=== PATIENT | male | born 1990 | race Caucasian/White ===

== ENCOUNTER 2017-05-06 15:36 | Inpatient (IN) ==
[2017-05-06] MEDS ORDERED: Ipratropium/Albuterol Neb 3 ML ONE (15:39)
[2017-05-06] MEDS ORDERED: Dexamethasone 4 MG/ML VIAL IVP ONE (15:44)
[2017-05-06] MEDS ORDERED: Ipratropium/Albuterol Neb 3 ML IH ONE (15:44)
--- NOTE | 2017-05-06 15:49 | Emergency Department Note ---
Disposition Clinical Impression: Respiratory distress, acute, Hypoxemia Asthma with exacerbation Qualifiers: Asthma severity: unspecified severity Qualified Code(s): J45.901 - Unspecified asthma with (acute) exacerbation Disposition: Admitted As Inpatient Condition: Fair SOB HPI - General Chief Complaint: ED Shortness of Breath/Dyspnea Stated Complaint: MARIANNA Time Seen by Provider: 05/06/17 15:43 Source: patient Nursing Notes Reviewed: Yes Vital Signs Reviewed: Yes - History of Present Illness I did see the patient immediately upon arrival and the patient presents with shortness of breath started gradually yesterday and is constant and severe and worse with exertion. He has not had an episode like this in the past. 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 She does accompany the patient here. He denies any pain or swelling of the lower extremities. Does have a productive cough but does not know the color. No rhinorrhea or sneezing. Does have some intermittent blurred vision when her shortness of breath worsens. No fever. No blood in the urine or stool. No pain or swelling or numbness of the lower extremities. No skin rash or bruising of the skin. Social history: Smoker, no alcohol or drugs - Related Data Home Medications Medication Instructions Recorded Confirmed No Known Home Drugs 05/06/17 05/06/17 Allergies Allergy/AdvReac Type Severity Reaction Status Date / Time No Known Allergies Allergy Verified 05/06/17 15:53 Review of Systems: He denies any pain or swelling of the lower extremities. Does have a productive cough but does not know the color. No rhinorrhea or sneezing. Does have some intermittent blurred vision when her shortness of breath worsens. No fever. No blood in the urine or stool. No pain or swelling or numbness of the lower extremities. No skin rash or bruising of the skin. Past Medical History - Past Medical History Medical history: Reports: hypertension Psychiatric history: Reports: no psych history - Social History Smoking Status: Current every day smoker Smokeless Tobacco Status: No Alcohol use: Reports: none Drug use: Reports: none Physical Exam CONSTITUTIONAL: Alert and oriented X3, well-nourished, well appearing, in no apparent distress HEAD: Normocephalic; atraumatic. EYES: PERRL, no scleral icterus. NOSE: The nose is normal in appearance without rhinorrhea ORAL: Well hydrated, moist mucous membranes. No drooling, trismus or stridor noted THROAT: Normal appearance without exudates, erythema., but there is some minimal uvular edema. The uvula is midline. Airway widely patent. No evidence of abscess NECK: No anterior cervical adenopathy, trachea is midline RESP: Normal chest excursion with respiration; breath sounds with bilateral wheezing and rhonchi which is symmetric CARD: Regular rhythm, without murmurs, rub or gallop ABD: Non-distended; non-tender, soft,without rigidity, rebound or guarding SKIN: Normal for age and race; warm and dry; no apparent lesions EXTREMITIES: Pulses are 2 plus and equal times 4 extremities, no peripheral edema or calf muscle pain. - General General appearance: alert, in no apparent distress Course Vital Signs Temperature 98.2 F 05/06/17 15:39 Pulse Rate 123 05/06/17 15:39 Respiratory Rate 30 05/06/17 15:39 Blood Pressure 196/135 05/06/17 15:39 O2 Sat by Pulse Oximetry 89 05/06/17 15:39 Temperature 98.2 F 05/06/17 15:39 Pulse Rate 119 05/06/17 17:13 Respiratory Rate 0 05/06/17 18:09 Blood Pressure 0/0 05/06/17 18:09 O2 Sat by Pulse Oximetry 92 05/06/17 17:13 Oxygen Delivery Oxygen Delivery Room Air Shortness of Breath/Dyspnea - MDM Narrative Medical decision making narrative: Acute respiratory distress, does have wheezing, DuoNeb and Decadron have been started. I did review the stat portable chest x-ray without evidence of infiltrate or pneumothorax. The patient's initial oxygen saturation was 77% as the low 90s at this time. Because he is a industrial truck mechanic I will have on a d- dimer and additional labs are also pending. I did review the EKG showing sinus tachycardia with a rate of [address] and T-wave changes but no specific changes for ischemia or infarction. 1550 I did go back and see the patient. He does feel better with the DuoNeb however is still dyspneic. I did add on a d-dimer and we will await the results of this test as well as the other tests and the patient is on nasal cannula oxygen with saturation of 95% at this time. EKG did not show ischemic changes. Patient will be admitted to the hospital. 1558 I did review the patient's labs. Does have leukocytosis likely from demargination from significantly stressful event of respiratory distress. The d -dimer and BNP and troponin did not indicate evidence of heart disease or pulmonary embolism or heart failure and with the patient's wheezing and his improvement with DuoNeb and Decadron this likely represents a significant COPD exacerbation. I did have a long conversation with the patient regarding his smoking. The patient will be admitted to the hospital. Hospitalist has been paged. 1727 I did discuss with the hospitalist Dr. Weinstein who accepted the patient for admission. 1736 The second troponin which was ordered by the hospitalist came back slightly elevated and so for that reason I did write for a EKG the patient's clinical condition is significantly improved. I will look at the second EKG before he goes upstairs which will occur shortly. 1809 I did review the second EKG which shows sinus tachycardia with a rate of 111 bpm but does not show evidence of acute ischemic change 1824 - Medical Records Medical records reviewed: Yes I reviewed the patient's medical records. - Lab Data Lab results reviewed: Yes I reviewed the patient's lab results. Result diagrams: 05/06/17 16:09 05/06/17 16:09 Lab Results 05/06/17 05/06/17 05/06/17 Range/Units 16:09 16:09 16:09 WBC 21.1 H (4.3-11.1) K/mcL RBC 5.52 H (4.19-5.50) M/mcL Hgb 15.1 (12.9-16.9) g/dL Hct 46.5 (37.5-50.1) % MCV 84.2 (83.0-100.0) fL MCH 27.4 L (28.0-33.3) pg MCHC 32.5 (31.6-35.5) g/dL RDW 13.2 (11.5-14.5) % Plt Count 391 (140-400) K/mcL MPV 9.0 L (9.4-12.4) fL Immature Gran % 0.5 (0-4) % Seg Neutrophils % 87.7 % Lymphocytes % 6.1 % Monocytes % 5.3 % Eosinophils % 0.2 % Basophils % 0.2 % Neutrophils # 18.5 H (1.6-8.9) K/mcL Lymphocytes # 1.3 (0.6-4.6) K/mcL Monocytes # 1.1 (0.0-1.3) K/mcL Eosinophils # 0.0 (0.0-0.6) K/mcL Basophils # 0.0 (0.0-0.2) K/mcL Immature Plt Fraction 2.6 (1.1-6.1) % D-Dimer (0-500) ng/mLFEU Sodium 139 (136-145) mEq/L Potassium 3.8 (3.5-4.5) mEq/L Chloride 100 (98-109) mEq/L Carbon Dioxide 28 (19-29) mEq/L BUN 7 L (8-26) mg/dL Creatinine 0.85 (0.72-1.25) mg/dL Est GFR ( Amer) > 60 (> 60) Est GFR (Non-Af Amer) > 60 (> 60) BUN/Creatinine Ratio 8 (6-26) Glucose 123 H (70-99) mg/dL Est Mean Plasma Glucose mg/dl Hemoglobin A1c ( - 5.6) % Calculated Osmolality 287 (280-300) Lactic Acid (0.5-2.2) mmol/L Calcium 9.8 (8.6-10.8) mg/dL Troponin I 0.03 (0-0.03) ng/mL B-Natriuretic Peptide (0-100) pg/mL 05/06/17 05/06/17 05/06/17 Range/Units 16:09 16:09 16:09 WBC (4.3-11.1) K/mcL RBC (4.19-5.50) M/mcL Hgb (12.9-16.9) g/dL Hct (37.5-50.1) % MCV (83.0-100.0) fL MCH (28.0-33.3) pg MCHC (31.6-35.5) g/dL RDW (11.5-14.5) % Plt Count (140-400) K/mcL MPV (9.4-12.4) fL Immature Gran % (0-4) % Seg Neutrophils % % Lymphocytes % % Monocytes % % Eosinophils % % Basophils % % Neutrophils # (1.6-8.9) K/mcL Lymphocytes # (0.6-4.6) K/mcL Monocytes # (0.0-1.3) K/mcL Eosinophils # (0.0-0.6) K/mcL Basophils # (0.0-0.2) K/mcL Immature Plt Fraction (1.1-6.1) % D-Dimer 294 (0-500) ng/mLFEU Sodium (136-145) mEq/L Potassium (3.5-4.5) mEq/L Chloride (98-109) mEq/L Carbon Dioxide (19-29) mEq/L BUN (8-26) mg/dL Creatinine (0.72-1.25) mg/dL Est GFR ( Amer) (> 60) Est GFR (Non-Af Amer) (> 60) BUN/Creatinine Ratio (6-26) Glucose (70-99) mg/dL Est Mean Plasma Glucose 103 mg/dl Hemoglobin A1c 5.2 ( - 5.6) % Calculated Osmolality (280-300) Lactic Acid (0.5-2.2) mmol/L Calcium (8.6-10.8) mg/dL Troponin I (0-0.03) ng/mL B-Natriuretic Peptide 83 (0-100) pg/mL 05/06/17 05/06/17 Range/Units 17:14 17:14 WBC (4.3-11.1) K/mcL RBC (4.19-5.50) M/mcL Hgb (12.9-16.9) g/dL Hct (37.5-50.1) % MCV (83.0-100.0) fL MCH (28.0-33.3) pg MCHC (31.6-35.5) g/dL RDW (11.5-14.5) % Plt Count (140-400) K/mcL MPV (9.4-12.4) fL Immature Gran % (0-4) % Seg Neutrophils % % Lymphocytes % % Monocytes % % Eosinophils % % Basophils % % Neutrophils # (1.6-8.9) K/mcL Lymphocytes # (0.6-4.6) K/mcL Monocytes # (0.0-1.3) K/mcL Eosinophils # (0.0-0.6) K/mcL Basophils # (0.0-0.2) K/mcL Immature Plt Fraction (1.1-6.1) % D-Dimer (0-500) ng/mLFEU Sodium (136-145) mEq/L Potassium (3.5-4.5) mEq/L Chloride (98-109) mEq/L Carbon Dioxide (19-29) mEq/L BUN (8-26) mg/dL Creatinine (0.72-1.25) mg/dL Est GFR ( Amer) (> 60) Est GFR (Non-Af Amer) (> 60) BUN/Creatinine Ratio (6-26) Glucose (70-99) mg/dL Est Mean Plasma Glucose mg/dl Hemoglobin A1c ( - 5.6) % Calculated Osmolality (280-300) Lactic Acid 1.2 (0.5-2.2) mmol/L Calcium (8.6-10.8) mg/dL Troponin I 0.05 H* (0-0.03) ng/mL B-Natriuretic Peptide (0-100) pg/mL - Radiology Data Radiology results reviewed: Yes I reviewed the patient's radiology results.
[2017-05-06 16:23] LABS: Basophils % 0.2 %; Eosinophils % 0.2 %; Hematocrit 46.5 % (37.5-50.1); Hemoglobin 15.1 g/dL (12.9-16.9); Immature Granulocytes % 0.5 % (0-4); Immature Platelets 2.6 % (1.1-6.1); Lymphocytes # 1.3 K/mcL (0.6-4.6); Lymphocytes % 6.1 %; Mean Corpuscular HGB Conc 32.5 g/dL (31.6-35.5); Mean Corpuscular Hemoglobin 27.4 pg (28.0-33.3); Mean Corpuscular Volume 84.2 fL (83.0-100.0); Monocytes # 1.1 K/mcL (0.0-1.3); Monocytes % 5.3 %; Neutrophils # 18.5 K/mcL (1.6-8.9); Platelet Count 391 K/mcL (140-400); Red Blood Count 5.52 M/mcL (4.19-5.50); Red Cell Distribution Width 13.2 % (11.5-14.5); Segmented Neutrophils % 87.7 %
[2017-05-06 16:40] LABS: BUN/Creatinine Ratio 8 (6-26); Blood Urea Nitrogen 7 mg/dL (8-26); Calcium 9.8 mg/dL (8.6-10.8); Carbon Dioxide 28 mEq/L (19-29); Chloride 100 mEq/L (98-109); Glucose 123 mg/dL (70-99); Osmolality,Calculated 287 (280-300); Potassium 3.8 mEq/L (3.5-4.5); Sodium 139 mEq/L (136-145); eGFR For African Americans > 60 (> 60); eGFR For Non-African Americans > 60 (> 60)
[2017-05-06] MEDS ORDERED: Naloxone 0.4 MG/ML INJ IVP PRN (16:44)
[2017-05-06] MEDS ORDERED: Aminoglycoside Consult 1 EACH MC ONE (16:45)
[2017-05-06] MEDS ORDERED: Piperacillin/Tazobactam 3.375 GM in D5% in Water (Mini-Bag+) 100 ML IVPB ONE (16:50)
[2017-05-06] MEDS ORDERED: Vancomycin 1,250 MG in D5% in Water 250 ML IVPB SCH (17:00)
[2017-05-06] MEDS ORDERED: MethylPREDNISolone 40 MG/ML VIAL IVP ONE (17:05)
--- NOTE | 2017-05-06 17:17 | Internal Med History&Physical ---
<KirillmarcellusjamilLeonid Delarosa - Last Filed: 05/06/17 17:13> Date of Encounter: 05/06/17 Time of Encounter: 15:30 Assessment and Plan (1) Asthma with exacerbation Current visit: Yes Status: Acute 26-year-old male who smokes 3 packs of cigarettes per day present with acute onset hypoxic respiratory failure with an oxygen saturation in the 70s upon presentation at room air associate with tachycardia and accelerated hypertension. Breathing improved with IV steroids, DuoNeb nebs and albuterol nebulizer. Currently maintaining oxygen saturations at 92% on 4 L nasal cannula oxygen - Denies any known history of asthma, COPD, hospitalizations for respiratory disease. DDx: Pulmonary embolism, COPD exacerbation, pneumonia. 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 He denies any history of DVT, PE or coagulopathies. - His father has a history of alpha-1 antitrypsin deficiency, he denies any history of evaluation or workup. - Chest x-ray was reviewed and demonstrates no findings of cardiopulmonary abnormalities. Plan: - Continue nasal cannula oxygen to maintain oxygen saturations between 88-92% - Continue methylprednisone 40 mg IV every 8 hours - CTA to rule out pulmonary embolism - Scheduled DuoNeb nebs every 4 hours (2) Respiratory distress, acute Current visit: Yes Status: Acute Highly suspicious or COPD exacerbation with significant smoking history, WBC elevation 21, neutrophil count of 18.5, acute respiratory failure with oxygen saturations of 70% upon arrival improvement after DuoNeb nebs, albuterol nebulizer and IV steroids. 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 - Presenting blood pressure of 196/135 - Improved after respiratory intervention. Plan: - Monitor BP and address as necessary (4) Current visit: Yes Status: Acute Patient's BMI 51.6, would benefit from diet modifications lifestyle improvement and weight loss. Internal Medicine - H&P: HPI Chief complaint: short of breath Admitted From: Emergency Dept Plans for Post Hospital Care: Home History of present illness: Mr. Jones is a 26 year old male presents to the emergency department this evening with shortness of breath. He states that he was driving on his job last evening around 10 PM and had acute onset of shortness of breath. His shortness of breath made him feel air hungry and he tried taking NyQuil to help with his breathing with no success. Exacerbating factors included any activity even including changing position. He states that he was able to lay flat without worsening of his symptoms but he did not have much relief. His symptoms continued to progress in nature until today when he presented to the emergency department. He denies any history of lung disease, shortness of breath, symptoms similar to this in the past or hospitalizations for shortness of breath. 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 He has never used any inhalers or seen a rand maker. He is unsure if he has any other medical history as he does not follow-up regularly with a physician. He denies any chest pain, palpitations, worsening of the shortness of breath when he takes a deep breath but he does feel restricted with his breathing. He denies any recent weight gain or loss. He does admit to feeling warm last night having to turn on the air conditioner and feeling too short of breath to make it to the bathroom and lost control of his bowel and bladder briefly. He is able to control his bowels and bladder today. Past Med Surg Social Fam HX - Past Medical History Medical history: hypertension Psychiatric history: no psych history - Social History Smoking Status: Current every day smoker Smokeless Tobacco Status: No Alcohol use: none Drug use: marijuana - Family History Father Hx Family Cardiac Disorders: Yes (Congestive heart failure) Hx Family Respiratory Disorders: Yes (Alpha-1 antitrypsin deficiency) Mother Hx Family Endocrine Disorder: Yes (Diabetes) Internal Medicine - H&P: Meds No Known Home Drugs 05/06/17 [History] 3 Allergy/AdvReac Type Severity Reaction Status Date / Time No Known Allergies Allergy Verified 05/06/17 15:53 All Systems PM: A 10-system review of systems was performed and is negative for pertinent findings except as documented above in the HPI. - Constitutional Constitutional: no chills, no fever(s), no night sweats - EENT Eyes: no change in vision, no discharge, no pain, no photophobia Ears: no ear discharge, no ear pain, no tinnitus Nose, mouth and throat: no dysphagia, no nasal discharge, no neck pain, no sore throat - Cardiovascular Cardiovascular ROS IM: no chest pain, no diaphoresis, no dyspnea, no lightheadedness, no palpitations, no syncope - Respiratory Respiratory: dyspnea, wheezing, no cough, no excessive phlegm production - Gastrointestinal Gastrointestinal: diarrhea, loose stools, no abdominal pain, no hematemesis, no hematochezia, no melena, no nausea, no vomiting - Genitourinary Genitourinary ROS male: no dysuria, no flank pain, no urinary frequency - Musculoskeletal Musculoskeletal ROS IM: no muscle cramps, no muscle weakness, no numbness, no tingling - Integumentary Integumentary IM: no rash, no unusual bruising - Neurological Neurological ROS: no confusion, no convulsions, no focal weakness, no numbness, no tingling, no tremor(s) - Hematologic/Lymphatic Hematologic/Lymphatic: no easy bruising - Constitutional Vitals: Temp Pulse Resp BP Pulse Ox 98.2 F 135 30 155/131 98 05/06/17 15:39 05/06/17 15:59 05/06/17 15:57 05/06/17 15:59 05/06/17 15:59 Exam: General: Patient alert, awake, oriented 3, interactive, in mild respiratory distress HEENT: Normocephalic, atraumatic, pupils equal reactive to light, nasal cavity patent and open septum median position, oral mucosa moist, uvula midline, neck supple trachea midline no palpable lymphadenopathy, no thyromegaly. Chest: Symmetric bilateral correlating with respiratory effort, effort moderately labored Cardiac: Tachycardic, positive S1, S2, no bruits appreciated bilateral carotids , Radial pulses 2+ bilateral, posterior tibial and dorsal pedal pulses 2+ bilateral. Respiratory: Diminished in surgery and expiratory breath sounds with diffuse wheezing with both inspiration and exhalation Abdomen: Soft, obese, nontender, positive bowel sounds, no palpable masses appreciated on examination Extremities: Symmetric bilateral, no erythema or edema, patient moving all 4 extremities spontaneously. Neurologic: No focal deficits appreciated on examination. Face symmetric, muscle strength symmetric bilateral upper and lower extremities. Internal Med - H&P Results - Labs CBC & Chem 7: 05/06/17 16:09 05/06/17 16:09 Labs: Short CBC 05/06/17 Range/Units 16:09 WBC 21.1 H (4.3-11.1) K/mcL Hgb 15.1 (12.9-16.9) g/dL Hct 46.5 (37.5-50.1) % Plt Count 391 (140-400) K/mcL Neutrophils # 18.5 H (1.6-8.9) K/mcL BMP 05/06/17 16:09 Sodium 139 Potassium 3.8 Chloride 100 Carbon Dioxide 28 BUN 7 L Creatinine 0.85 Glucose 123 H Calcium 9.8 Cardiac Enzymes 05/06/17 Range/Units 16:09 Troponin I 0.03 (0-0.03) ng/mL - Impressions ITS Impressions Chest X-Ray 05/06/17 15:43 IMPRESSION: 1. No active pulmonary disease. D/ / Alexis Rhodes MD / Alexis Rhodes MD Interpreting Provider: Alexis Rhodes MD <Fabian Jewell P - Last Filed: 05/06/17 17:52> Date of Encounter: 05/06/17 Internal Medicine - H&P: HPI History of present illness: Mr. Jones is a 26 year old male All Systems PM: A 10-system review of systems was performed and is negative for pertinent findings except as documented above in the HPI. - Constitutional Vitals: Temp Pulse Resp BP Pulse Ox 98.2 F 119 11 142/87 92 05/06/17 15:39 05/06/17 17:13 05/06/17 17:13 05/06/17 17:13 05/06/17 17:13 Internal Med - H&P Results - Labs CBC & Chem 7: 05/06/17 16:09 05/06/17 16:09 Labs: Short CBC 05/06/17 Range/Units 16:09 WBC 21.1 H (4.3-11.1) K/mcL Hgb 15.1 (12.9-16.9) g/dL Hct 46.5 (37.5-50.1) % Plt Count 391 (140-400) K/mcL Neutrophils # 18.5 H (1.6-8.9) K/mcL BMP 05/06/17 16:09 Sodium 139 Potassium 3.8 Chloride 100 Carbon Dioxide 28 BUN 7 L Creatinine 0.85 Glucose 123 H Calcium 9.8 Cardiac Enzymes 05/06/17 Range/Units 16:09 Troponin I 0.03 (0-0.03) ng/mL - Impressions ITS Impressions Chest X-Ray 05/06/17 15:43 IMPRESSION: 1. No active pulmonary disease. D/ / Alexis Rhodes MD / Alexis Rhodes MD Interpreting Provider: Alexis Rhodes MD - Attending Attestation I examined this patient and my medical decision-making was reviewed with the Resident Physician. I agree with the documented findings, disposition and treatment plan as described except to the extent set forth below.
[2017-05-06 18:21] LABS: Hemoglobin A1C 5.2 %
[2017-05-06 18:28] LABS: ABG Base Excess 2.9 mEq/L (-2.0 to 3.0); ABG Oxygen Saturation 91 % (95-98); ABG PCO2 49 mmHg (35-45); ABG PH 7.38 pH Units (7.32-7.45); ABG PO2 62 mmHg (85-104); ABG TCO2 30.5 mEq/L (20-26); Blood Gas FiO2 36 %; Blood Gas Liter Flow 4 L/MIN
[2017-05-06] MEDS: 0.9 % Sodium Chloride 1,000 ML IVC SCH (20:04)
[2017-05-06] MEDS: Vancomycin 2,000 MG in D5% in Water 500 ML IVPB SCH (20:05)
[2017-05-06] MEDS: *HR* Heparin 5,000 UNIT/ML VIAL SQ SCH (20:06)
[2017-05-06] MEDS: Ipratropium/Albuterol Neb 3 ML IH SCH (20:37)
[2017-05-07] MEDS: Ipratropium/Albuterol Neb 3 ML IH SCH ×3 (00:04→07:54)
[2017-05-07] MEDS: MethylPREDNISolone 40 MG/ML VIAL IVP SCH ×2 (00:28→08:19)
[2017-05-07] MEDS ORDERED: Ipratropium/Albuterol Neb 3 ML IH PRN (01:06)
--- NOTE | 2017-05-07 01:10 | Event Note ---
Date of Encounter: 05/07/17 Time of Encounter: 01:08 Assessed at bedside due to tachycardia 120's, hypoxia, tachypnea, dyspnea. Mild distress, patient is appear to converse, not using accessory muscles and able to laugh. O2 saturation 93% on 5 l/nc, not on oxygen at home - Check VBG, lactic acid - Check CTA r/o PE as planned
[2017-05-07 01:50] LABS: VBG HCO3 27.7 mEq/L (21-27); VBG PH 7.36 pH Units (7.32-7.42)
[2017-05-07 05:22] LABS: VBG HCO3 29.2 mEq/L (21-27); VBG PH 7.31 pH Units (7.32-7.42)
[2017-05-07 05:43] LABS: Alanine Aminotransferase 40 Units/L (0-55); Albumin 3.9 g/dL (3.5-5.0); Albumin/Globulin Ratio 1.1 (1.1-2.2); Alkaline Phosphatase 71 Units/L (38-126); Aspartate Amino Transferase 39 Units/L (5-34); BUN/Creatinine Ratio 13 (6-26); Bilirubin,Total < 0.3 mg/dL (0.2-1.2); Blood Urea Nitrogen 10 mg/dL (8-26); Calcium 9.8 mg/dL (8.6-10.8); Carbon Dioxide 28 mEq/L (19-29); Chloride 103 mEq/L (98-109); Chol/HDL Ratio 3.6 (0-4.9); Cholesterol 160 mg/dL (< 200); Globulin 3.5 g/dL (2.4-3.5); Glucose 143 mg/dL (70-99); HDL Cholesterol 44 mg/dL (40-59); LDL Cholesterol,Calculated 102 mg/dL (0-99); Osmolality,Calculated 290 (280-300); Phosphorous 2.9 mg/dL (2.3-4.7); Potassium 4.5 mEq/L (3.5-4.5); Sodium 139 mEq/L (136-145); Total Protein 7.4 g/dL (6.0-8.3); Triglycerides 68 mg/dL (< 150); eGFR For African Americans > 60 (> 60); eGFR For Non-African Americans > 60 (> 60)
[2017-05-07] MEDS: *HR* Heparin 5,000 UNIT/ML VIAL SQ SCH ×2 (06:11→18:16)
[2017-05-07] MEDS: Vancomycin 2,000 MG in D5% in Water 500 ML IVPB SCH (06:17)
[2017-05-07] MEDS ORDERED: *HR* Heparin 5,000 UNIT/ML VIAL IVP ONE (09:55)
[2017-05-07] MEDS ORDERED: *HR* Heparin 5,000 UNIT/ML VIAL IVP PRN ×2 (09:55)
[2017-05-07] MEDS ORDERED: Heparin 25,000 UNIT/500 ML D5W 25,000 UNIT/500 ML MLS IVC SCH (10:00)
--- NOTE | 2017-05-07 10:01 | Internal Med Progress Note ---
Date of Encounter: 05/07/17 Time of Encounter: 09:58 - Assessment and plan (1) Pulmonary embolism Current Visit: Yes Status: Suspected Assessment and plan: Suspect acute pulmonary embolus. D-dimer is negative. However, very high suspicion. Patient going for CT angiogram now. We will follow the results. Will obtain echocardiogram to evaluate his cardiac status. Anticoagulation. Patient is high risk due to need for further evaluation for his acute hypoxic respiratory failure and possible pulmonary embolus which would require heparin drip. Qualifiers: Pulmonary embolism type: other Chronicity: acute Acute cor pulmonale presence: without acute cor pulmonale Qualified Code(s): I26.99 - Other pulmonary embolism without acute cor pulmonale (2) Respiratory failure Current Visit: Yes Status: Acute Assessment and plan: Likely related to pulmonary embolus and COPD exacerbation. Oxygen supplementation. Qualifiers: Chronicity: acute Respiratory failure complication: hypoxia Qualified Code(s): J96.01 - Acute respiratory failure with hypoxia (3) Tobacco dependence Current Visit: Yes Status: Chronic Assessment and plan: Counseled extensively regarding need for cessation. Patient is requesting nicotine replacement. He will be placed on 21 mg nicotine patch. (4) HTN (hypertension) Current Visit: Yes Status: Chronic Assessment and plan: Continue home medications. Discontinue intravenous fluids. Qualifiers: Hypertension type: essential hypertension Qualified Code(s): I10 - Essential (primary) hypertension (5) Morbid obesity with BMI of 50.0-59.9, adult Current Visit: No Status: Chronic (6) COPD (chronic obstructive pulmonary disease) Current Visit: Yes Status: Chronic Assessment and plan: Suspect undiagnosed COPD in this patient who smokes 2 packs of cigarettes a day. Currently in exacerbation with worsening shortness of breath, dry cough, diffuse wheezing on exam. Likely precipitated by pulmonary embolus. Continue intravenous steroids. He will be started on by mouth azithromycin. Breathing treatments. Counseled regarding smoking cessation. Qualifiers: COPD type: COPD with acute exacerbation Qualified Code(s): J44.1 - Chronic obstructive pulmonary disease with (acute) exacerbation - Subjective Interval history: He started having shortness of breath 2 days ago. This started suddenly and was present at rest. Associated with wheezing and feeling lightheaded. He also reports having cough that is not productive of sputum last night. He denies any chest pain but reports palpitations. 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 Reports cramping in his right leg in the calf over the past 3-4 days. Denies any nausea, vomiting, abdominal pain, diarrhea or constipation. - Constitutional Vitals: Temp Pulse Resp BP Pulse Ox 98.2 F 112 20 143/78 97 05/07/17 06:56 05/07/17 06:56 05/07/17 07:56 05/07/17 06:56 05/07/17 07:56 Exam: Gen.: Lying in bed. Mild distress. Chest: Bilateral reduced breath sounds. Diffuse wheezing present. Not using accessory muscles of respiration. CVS: First and second heart sounds present. No murmurs, rubs or gallops. Tachycardia present. Abdomen: Soft, nontender, nondistended. Bowel sounds present. No hepatosplenomegaly. Skin: No decubitus ulcers appreciated. SAND TECHNOLOGIST: No focal neuro deficits present. Internal Medicine: Result - Labs CBC & Chem 7: 05/06/17 16:09 05/07/17 05:10 Labs: BMP 05/07/17 05:10 Sodium 139 Potassium 4.5 Chloride 103 Carbon Dioxide 28 BUN 10 Creatinine 0.79 Glucose 143 H Calcium 9.8 Cardiac Enzymes 05/06/17 05/07/17 Range/Units 22:22 05:10 Troponin I 0.06 H* 0.02 (0-0.03) ng/mL Liver Function 05/07/17 Range/Units 05:10 Total Bilirubin < 0.3 (0.2-1.2) mg/dL AST 39 H (5-34) Units/L ALT 40 (0-55) Units/L Alkaline Phosphatase 71 (38-126) Units/L Albumin 3.9 (3.5-5.0) g/dL - ABG Interpretation ABG results: ABG ABG pH 7.38 pH Units (7.32-7.45) 05/06/17 17:30 ABG pCO2 49 mmHg (35-45) H 05/06/17 17:30 ABG pO2 62 mmHg (85-104) L 05/06/17 17:30 ABG O2 Saturation 91 % (95-98) L 05/06/17 17:30 PT/INR, D-dimer D-Dimer 294 ng/mLFEU (0-500) 05/06/17 16:09 Consult Discharge Plan - Plan Referrals: Sammy Bates M.D. [Primary Care Provider] -
[2017-05-07] MEDS: Nicotine 21 MG PATCH.TD24 TD SCH (10:27)
[2017-05-07] MEDS: Azithromycin 250 MG TABLET PO SCH (10:44)
[2017-05-07] MEDS: Ipratropium Neb 0.5 MG NEBULIZER IH SCH ×4 (10:56→23:36)
[2017-05-07] MEDS ORDERED: Nicotine 2 MG GUM BC PRN (11:05)
[2017-05-07] MEDS ORDERED: Saline Nasal Spray 44 ML BOTTLE NS PRN (11:28)
[2017-05-07] MEDS: Acetaminophen 325 MG TABLET PO PRN ×2 (12:16→22:20)
--- NOTE | 2017-05-07 13:20 | Pulmonology Consult Note ---
Date of Encounter: 05/07/17 Time of Encounter: 12:00 Assessment and Plan (1) COPD exacerbation Current Visit: Yes Status: Acute COPD exacerbation from strong history of smoking and I had long discussion with the patient the presence of the nurses that he needs to quit smoking. I will increase his systemic steroid and his blood sugar needs to be monitored as well as adding long acting bronchodilator with inhaled corticosteroid to and short- acting bronchodilators. Empiric antibiotics and reasonable especially with CT chest finding. Patient has strong family history of COPD and alpha-1 antitrypsin deficiency, however it's not recommended to check the level during the acute episode and I have told him this can be done as outpatient. (2) AUGUSTINE (obstructive sleep apnea) Current Visit: Yes Status: Chronic patient needs to be treated and I have explained to him old risks associated with untreated obstructive sleep apnea, mainly cardiovascular especially since he has hypertension. As an outpatient he will need repeat sleep study and treatment. (3) Respiratory failure Current Visit: Yes Status: Acute I suspect the patient will need oxygen hopefully short-term, for now keep his SPO2 around 90%. Qualifiers: Chronicity: acute Respiratory failure complication: hypoxia Qualified Code(s): J96.01 - Acute respiratory failure with hypoxia (4) HTN (hypertension) Current Visit: Yes Status: Chronic Qualifiers: Hypertension type: essential hypertension Qualified Code(s): I10 - Essential (primary) hypertension (5) Tobacco dependence Current Visit: Yes Status: Chronic advised patient to quit smoking (6) Morbid obesity with BMI of 50.0-59.9, adult Current Visit: No Status: Chronic weight loss recommended History of Present Illness Consult date: 05/07/17 Requesting physician: Wayne Pittman Reason for consult: dyspnea, COPD Chief complaint: shortness of breath History of present illness: this is a very pleasant 26-year-old male with history of obstructive sleep apnea but not on treatment and he stated he did not tolerate the machine and he doesn't have it now. Patient drives but no accidents according to him. Patient has significant smoking history with very strong history of alpha-1 antitrypsin and COPD in the family, however with smoking history. Patient has productive cough, wheezing, dyspnea on exertion and to sitting treated with systemic steroids and bronchodilators. Patient was found to be hypoxic and he is feeling better now. He still requiring about 4 L per minute oxygen. Past Med Surg Social Fam HX - Past Medical History Medical history: hypertension Psychiatric history: no psych history - Social History Smoking Status: Current every day smoker Smokeless Tobacco Status: No Alcohol use: none Drug use: none - Family History Father Hx Family Cardiac Disorders: Yes (Congestive heart failure) Hx Family Respiratory Disorders: Yes (Alpha-1 antitrypsin deficiency) Mother Hx Family Endocrine Disorder: Yes (Diabetes) Medications and Allergies No Known Home Drugs 05/06/17 [History] 3 Allergy/AdvReac Type Severity Reaction Status Date / Time No Known Allergies Allergy Verified 05/06/17 15:53 All Systems: A 10-system review of systems was performed and is negative for pertinent findings except as documented above in the HPI. Physical Examination Vital Signs: Vital Signs, Last 4 Hours Temp Pulse Resp BP Pulse Ox 05/07/17 11:04 16 96 05/07/17 11:01 98.2 F 112 16 162/80 97 General appearance: appears uncomfortable Eyes: nonicteric ENT: oropharynx moist Mallampati (class): 4 Neck: supple, no lymphadenopathy Effort: mildly labored Inspection: other (obese) Auscultation: bilateral: wheezes Percussion: bilateral: not dull Cardiovascular: regular rate and rhythm Gastrointestinal: normoactive bowel sounds, other (obese) Extremities: no cyanosis, edema normal mental status, non-focal exam mood appropriate Results - Laboratory Findings CBC and BMP: 05/07/17 14:26 05/07/17 05:10 ABG ABG pH 7.38 pH Units (7.32-7.45) 05/06/17 17:30 ABG pCO2 49 mmHg (35-45) H 05/06/17 17:30 ABG pO2 62 mmHg (85-104) L 05/06/17 17:30 ABG O2 Saturation 91 % (95-98) L 05/06/17 17:30 PT/INR, D-dimer D-Dimer 294 ng/mLFEU (0-500) 05/06/17 16:09 Abnormal lab findings: Abnormal lab results WBC 21.1 K/mcL (4.3-11.1) H 05/06/17 16:09 RBC 5.52 M/mcL (4.19-5.50) H 05/06/17 16:09 MCH 27.4 pg (28.0-33.3) L 05/06/17 16:09 MPV 9.0 fL (9.4-12.4) L 05/06/17 16:09 Neutrophils # 18.5 K/mcL (1.6-8.9) H 05/06/17 16:09 ABG pCO2 49 mmHg (35-45) H 05/06/17 17:30 ABG pO2 62 mmHg (85-104) L 05/06/17 17:30 ABG HCO3 29.0 mEQ/L (21-27) H 05/06/17 17:30 ABG Total CO2 30.5 mEq/L (20-26) H 05/06/17 17:30 ABG O2 Saturation 91 % (95-98) L 05/06/17 17:30 VBG pH 7.31 pH Units (7.32-7.42) L 05/07/17 05:10 VBG pCO2 58 mmHg (41-51) H 05/07/17 05:10 VBG pO2 68 mmHg (25-40) H 05/07/17 05:10 VBG HCO3 29.2 mEq/L (21-27) H 05/07/17 05:10 Glucose 143 mg/dL (70-99) H 05/07/17 05:10 AST 39 Units/L (5-34) H 05/07/17 05:10 LDL Cholesterol, Calc 102 mg/dL (0-99) H 05/07/17 05:10 - Diagnostic Findings CT scan - chest: report reviewed, image reviewed - Clinical Findings Intake & Output: Intake & Output 05/06/17 05/07/17 05/07/17 23:59 07:59 15:59 Intake Total 500 / 500 240 / 240 1630 / 1630 Output Total 850 / 850 400 / 400 850 / 850 Balance -350 / -350 -160 / -160 780 / 780 Weight 145.6 kg 145.6 kg Consult Discharge Plan - Plan Referrals: Sammy Bates M.D. [Primary Care Provider] -
[2017-05-07 14:48] LABS: Hematocrit 42.6 % (37.5-50.1); Hemoglobin 13.7 g/dL (12.9-16.9); Mean Corpuscular HGB Conc 32.2 g/dL (31.6-35.5); Mean Corpuscular Hemoglobin 27.6 pg (28.0-33.3); Mean Corpuscular Volume 85.9 fL (83.0-100.0); Mean Platelet Volume 9.5 fL (9.4-12.4); Platelet Count 368 K/mcL (140-400); Red Blood Count 4.96 M/mcL (4.19-5.50); Red Cell Distribution Width 13.5 % (11.5-14.5)
[2017-05-07] MEDS: 0.9 % Sodium Chloride 1,000 ML IVC SCH (14:55)
[2017-05-07 14:57] LABS: INR 1.1; Prothrombin Time 11.5 Seconds (9.4-12.1)
[2017-05-07 15:00] LABS: Activated Partial Thrombo Time 27.2 Seconds (26.0-36.0)
[2017-05-07] MEDS: methylPREDNISolone 125 MG/2 ML VIAL IVP SCH (15:40)
[2017-05-07 16:19] LABS: 2009 H1N1 PCR NOT DETECTED (Not Detect); Influenza A PCR Negative (Negative); Influenza B PCR Negative (Negative)
--- NOTE | 2017-05-07 17:02 | Electrocardiograph Report ---
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
--- NOTE | 2017-05-07 17:03 | Electrocardiograph Report ---
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
[2017-05-07] MEDS ORDERED: amLODIPine 5 MG TABLET PO ONE (17:35)
[2017-05-07] MEDS: ALPRAZolam 0.5 MG TABLET PO PRN (18:19)
[2017-05-07] MEDS: Budesonide/Formoterol 160/4.5 MDI IH SCH (19:30)
[2017-05-08] MEDS: methylPREDNISolone 125 MG/2 ML VIAL IVP SCH ×2 (00:21→09:51)
[2017-05-08] MEDS: Ipratropium Neb 0.5 MG NEBULIZER IH SCH ×4 (04:01→15:54)
[2017-05-08] MEDS: *HR* Heparin 5,000 UNIT/ML VIAL SQ SCH (04:13)
[2017-05-08] MEDS: ALPRAZolam 0.5 MG TABLET PO PRN ×2 (04:14→13:54)
[2017-05-08 05:01] LABS: Hematocrit 43.3 % (37.5-50.1); Hemoglobin 13.5 g/dL (12.9-16.9); Lymphocytes # 1.5 K/mcL (0.6-4.6); Mean Corpuscular HGB Conc 31.2 g/dL (31.6-35.5); Mean Corpuscular Hemoglobin 27.1 pg (28.0-33.3); Mean Corpuscular Volume 86.9 fL (83.0-100.0); Mean Platelet Volume 9.7 fL (9.4-12.4); Platelet Count 393 K/mcL (140-400); Red Blood Count 4.98 M/mcL (4.19-5.50); Red Cell Distribution Width 13.6 % (11.5-14.5)
[2017-05-08 05:15] LABS: Alanine Aminotransferase 51 Units/L (0-55); Albumin 3.7 g/dL (3.5-5.0); Albumin/Globulin Ratio 1.1 (1.1-2.2); Alkaline Phosphatase 61 Units/L (38-126); Aspartate Amino Transferase 31 Units/L (5-34); BUN/Creatinine Ratio 19 (6-26); Bilirubin,Total < 0.3 mg/dL (0.2-1.2); Blood Urea Nitrogen 15 mg/dL (8-26); Calcium 9.8 mg/dL (8.6-10.8); Carbon Dioxide 30 mEq/L (19-29); Chloride 104 mEq/L (98-109); Globulin 3.3 g/dL (2.4-3.5); Glucose 139 mg/dL (70-99); Osmolality,Calculated 295 (280-300); Potassium 4.4 mEq/L (3.5-4.5); Sodium 141 mEq/L (136-145); eGFR For African Americans > 60 (> 60); eGFR For Non-African Americans > 60 (> 60)
[2017-05-08 05:27] LABS: Monocytes # 0.5 K/mcL (0.0-1.3); Neutrophils # 23.3 K/mcL (1.6-8.9); Reactive Lymphocytes Present (Not Present)
[2017-05-08 05:28] LABS: Platelet Estimate Normal (Normal)
[2017-05-08] MEDS: Budesonide/Formoterol 160/4.5 MDI IH SCH (07:51)
[2017-05-08] MEDS: Nicotine 21 MG PATCH.TD24 TD SCH (09:50)
[2017-05-08] MEDS: Azithromycin 250 MG TABLET PO SCH (09:51)
[2017-05-08] MEDS: Acetaminophen 325 MG TABLET PO PRN (10:02)
--- NOTE | 2017-05-08 10:43 | Pulmonology Progress Note ---
Date of Encounter: 05/08/17 Time of Encounter: 10:45 Assessment and Plan (1) COPD exacerbation Current Visit: Yes Status: Resolved Patient is feeling better and discussed with primary team as well as the patient to qualify him for oxygen with 6 minute walk and I am hoping this is a little be a short-term as long as patient follows recommendation was quit smoking and be compliant with his treatment. (2) AUGUSTINE (obstructive sleep apnea) Current Visit: Yes Status: Chronic I have offered the patient to follow-up as outpatient to start the process again for his obstructive sleep apnea treatment. He might follow up with his primary care. (3) Respiratory failure Current Visit: Yes Status: Acute Qualifiers: Chronicity: acute Respiratory failure complication: hypoxia Qualified Code(s): J96.01 - Acute respiratory failure with hypoxia (4) HTN (hypertension) Current Visit: Yes Status: Chronic Qualifiers: Hypertension type: essential hypertension Qualified Code(s): I10 - Essential (primary) hypertension (5) Tobacco dependence Current Visit: Yes Status: Chronic One more time I have advised patient not to walk tobacco again (6) Morbid obesity with BMI of 50.0-59.9, adult Current Visit: No Status: Chronic Subjective Principal diagnosis: Dyspnea Interval history: Patient is feeling better and he wants to go home. His oxygen needs is less. Objective PUL Vital signs: Last Vital Signs Temp 96.8 F L 05/08/17 07:21 Pulse 60 05/08/17 07:21 Resp 14 05/08/17 07:52 BP 138/72 05/08/17 07:21 Pulse Ox 98 05/08/17 07:52 General appearance: no acute distress Eyes: nonicteric ENT: oropharynx moist Mallampati (class): 4 Neck: supple Effort: normal Auscultation: bilateral: diminished breath sounds Percussion: bilateral: not dull Cardiovascular: regular rate and rhythm Gastrointestinal: normoactive bowel sounds, soft Extremities: no cyanosis, edema normal mental status, non-focal exam mood appropriate Results - Laboratory Findings CBC and BMP: 05/08/17 03:28 05/08/17 03:28 ABG ABG pH 7.38 pH Units (7.32-7.45) 05/06/17 17:30 ABG pCO2 49 mmHg (35-45) H 05/06/17 17:30 ABG pO2 62 mmHg (85-104) L 05/06/17 17:30 ABG O2 Saturation 91 % (95-98) L 05/06/17 17:30 PT/INR, D-dimer PT 11.5 Seconds (9.4-12.1) 05/07/17 14:26 D-Dimer 294 ng/mLFEU (0-500) 05/06/17 16:09 Abnormal lab findings: Abnormal lab results WBC 25.3 K/mcL (4.3-11.1) H 05/08/17 03:28 MCH 27.1 pg (28.0-33.3) L 05/08/17 03:28 MCHC 31.2 g/dL (31.6-35.5) L 05/08/17 03:28 Neutrophils # 23.3 K/mcL (1.6-8.9) H 05/08/17 03:28 Reactive Lymphocytes Present (Not Present) A 05/08/17 03:28 ABG pCO2 49 mmHg (35-45) H 05/06/17 17:30 ABG pO2 62 mmHg (85-104) L 05/06/17 17:30 ABG HCO3 29.0 mEQ/L (21-27) H 05/06/17 17:30 ABG Total CO2 30.5 mEq/L (20-26) H 05/06/17 17:30 ABG O2 Saturation 91 % (95-98) L 05/06/17 17:30 VBG pH 7.31 pH Units (7.32-7.42) L 05/07/17 05:10 VBG pCO2 58 mmHg (41-51) H 05/07/17 05:10 VBG pO2 68 mmHg (25-40) H 05/07/17 05:10 VBG HCO3 29.2 mEq/L (21-27) H 05/07/17 05:10 Carbon Dioxide 30 mEq/L (19-29) H 05/08/17 03:28 Glucose 139 mg/dL (70-99) H 05/08/17 03:28 POC Glucose 123 (58-89) H 05/06/17 15:43 LDL Cholesterol, Calc 102 mg/dL (0-99) H 05/07/17 05:10 - Clinical Findings Intake & Output: Intake & Output 05/07/17 05/08/17 05/08/17 23:59 07:59 15:59 Intake Total 440 / 440 0 / 0 Output Total 800 / 800 Balance 440 / 440 -800 / -800 Weight 135.25 kg Consult Discharge Plan - Plan Instructions: Alprazolam (By mouth), Albuterol (By breathing), Prednisone (By mouth), Guaifenesin (By mouth), Azithromycin (By mouth), Nicotine (Absorbed through the skin), Amlodipine (By mouth), Cefdinir (By mouth), Budesonide/ Formoterol (By breathing) Referrals: Sammy aBtes M.D. [Primary Care Provider] - Silvio Rangel MD [Partnered Physician] - (1-2 weeks) Prescriptions: Albuterol Sulfate [Albuterol Inhaler] 2 puff IH Q6HR PRN #1 hfa.aer.ad PRN Reason: Shortness Of Breath/Wheezing GuaiFENesin Liq [Robitussin Liq] 200 mg PO Q6HR 20 Days ALPRAZolam [Xanax 0.5 MG Tablet] 0.5 mg PO TID PRN #14 tab PRN Reason: Anxiety amLODIPine [Norvasc] 5 mg PO DAILY #30 tablet Azithromycin [Zithromax] 500 mg PO DAILY #7 tab Budesonide/Formoterol 160/4.5 [Symbicort 160/4.5] 2 puff IH BIDR #1 inh Cefdinir [Omnicef] 300 mg PO BID #14 capsule Nicotine Patch [Nicoderm] 14 mg TD DAILY #14 patch.td24 Nicotine Patch [Nicoderm] 7 mg TD DAILY #30 patch.td24 Nicotine Patch [Nicoderm] 21 mg TD DAILY #14 PredniSONE [Deltasone] 20 mg PO AD #20 tablet
[2017-05-08 11:31] VITALS: BP 154/79
--- NOTE | 2017-05-08 11:58 | Discharge Summary ---
Date of Encounter: 05/08/17 Time of Encounter: 11:51 - Discharge Diagnosis (1) COPD (chronic obstructive pulmonary disease) Priority: Primary Status: Chronic Qualifiers: COPD type: COPD with acute exacerbation Qualified Code(s): J44.1 - Chronic obstructive pulmonary disease with (acute) exacerbation (2) AUGUSTINE (obstructive sleep apnea) Priority: Secondary Status: Chronic (3) Respiratory failure Priority: Secondary Status: Acute Qualifiers: Chronicity: acute Respiratory failure complication: hypoxia Qualified Code(s): J96.01 - Acute respiratory failure with hypoxia (4) Tobacco dependence Priority: Secondary Status: Chronic (5) HTN (hypertension) Priority: Secondary Status: Chronic Qualifiers: Hypertension type: essential hypertension Qualified Code(s): I10 - Essential (primary) hypertension (6) Morbid obesity with BMI of 50.0-59.9, adult Priority: Secondary Status: Chronic - Discharge Medications Prescriptions: Albuterol Sulfate [Albuterol Inhaler] 2 puff IH Q6HR PRN #1 hfa.aer.ad PRN Reason: Shortness Of Breath/Wheezing GuaiFENesin Liq [Robitussin Liq] 200 mg PO Q6HR 20 Days ALPRAZolam [Xanax 0.5 MG Tablet] 0.5 mg PO TID PRN #14 tab PRN Reason: Anxiety amLODIPine [Norvasc] 5 mg PO DAILY #30 tablet Azithromycin [Zithromax] 500 mg PO DAILY #7 tab Budesonide/Formoterol 160/4.5 [Symbicort 160/4.5] 2 puff IH BIDR #1 inh Cefdinir [Omnicef] 300 mg PO BID #14 capsule Nicotine Patch [Nicoderm] 14 mg TD DAILY #14 patch.td24 Nicotine Patch [Nicoderm] 7 mg TD DAILY #30 patch.td24 Nicotine Patch [Nicoderm] 21 mg TD DAILY #14 PredniSONE [Deltasone] 20 mg PO AD #20 tablet Home Medications: ALPRAZolam [Xanax 0.5 MG Tablet] 0.5 mg PO TID PRN #14 tab 05/08/17 [Rx] Albuterol Sulfate [Albuterol Inhaler] 2 puff IH Q6HR PRN #1 hfa.aer.ad 05/08/17 [Rx] Azithromycin [Zithromax] 500 mg PO DAILY #7 tab 05/08/17 [Rx] Budesonide/Formoterol 160/4.5 [Symbicort 160/4.5] 2 puff IH BIDR #1 inh [Rx] Cefdinir [Omnicef] 300 mg PO BID #14 capsule 05/08/17 [Rx] GuaiFENesin Liq [Robitussin Liq] 200 mg PO Q6HR 20 Days 05/08/17 [Rx] Nicotine Patch [Nicoderm] 7 mg TD DAILY #30 patch.td24 05/08/17 [Rx] Nicotine Patch [Nicoderm] 14 mg TD DAILY #14 patch.td24 05/08/17 [Rx] Nicotine Patch [Nicoderm] 21 mg TD DAILY #14 05/08/17 [Rx] PredniSONE [Deltasone] 20 mg PO AD #20 tablet 05/08/17 [Rx] amLODIPine [Norvasc] 5 mg PO DAILY #30 tablet 05/08/17 [Rx] Allergies/Adverse Reactions: 3 Allergy/AdvReac Type Severity Reaction Status Date / Time No Known Allergies Allergy Verified 05/06/17 15:53 Procedures/tests Complete & Pending: Procedures Performed prior 72 hours Category Date Time Status CT angio chest [CT] Stat Cat Scan 05/07/17 01:01 Completed ECG 12 lead ECG [ECG] Stat Y 05/06/17 18:10 Completed EV echocardiogram Routine Y 05/07/17 09:54 Completed Date of admission: 05/06/17 17:53 Primary care physician: Sammy Bates M.D. Consults: 05/07/17 11:36 Consult to Pulmonology [CONS] Routine Consulting Provider: [facility] [place] Reason for Consult: possible pneumocystis vs alpha 1 antitrypsin Call Completed: Yes Discharging clinician: Wayne Pittman Anticipated date of discharge: 05/08/17 - Patient Status Disposition: Home, Self-Care Condition: Good Functional capacity at discharge: independent ambulation Overall status at discharge: patient is progressing back to baseline - Discharge Instructions Follow Up With: Sammy Bates M.D. [Primary Care Provider] - Silvio Rangel MD [Partnered Physician] - (1-2 weeks) - Diet and Activity Activity: increase activity as tolerated, resume usual activities as tolerated, wear oxygen at all times Diet: low fat, low cholesterol, low salt diet Hospital course: Mr. 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 D-dimer was normal. CTA did not reveal PE but revealed atypical pneumonia and COPD. He was admitted and placed on antibiotics and steroids intravenously. He also required 5 L of oxygen via nasal cannula around the clock. Pulmonology was consulted. He was diagnosed as COPD exacerbation. He does have a strong family history of alpha-1 antitrypsin deficiency. He also has a history of obstructive sleep apnea and he is not compliant with his Pap therapy. He improved dramatically with intravenous steroids. On the day of discharge, he required only 1 L of oxygen supplementation. Pulmonology has cleared the patient to be discharged home today with outpatient follow-up for management of his COPD/asthma and sleep apnea. He needs to be off work for one week. He has been given prescriptions for steroids, antibiotics and inhalers. Extensively counseled regarding smoking cessation. He is being given scripts for NicoDerm patch. He was also counseled regarding the need for weight loss. As he is doing well and has been cleared by pulmonology, he has been deemed stable to be discharged home today. - Time Spent with Patient Total time spent providing and/or coordinating discharge services: Greater than 30 minutes (50 min) - Constitutional Vitals: Temp Pulse Resp BP Pulse Ox 98 F 96 16 154/79 96 05/08/17 11:28 05/08/17 11:28 05/08/17 11:28 05/08/17 11:28 05/08/17 11:28 Exam: Gen.: Sit ting in bed. No acute distress. Chest: Bilateral intermittent wheezing present CVS: First and second heart sounds present. No murmurs, rubs or gallops. Abdomen: Soft, nontender, obese. Bowel sounds present. No hepatosplenomegaly. Skin: No decubitus ulcers appreciated.
== END 2017-05-08 16:46 | disposition home or self-care (01) | DRG 140 ==
LOC: EMEROO 15:36 → 2NENU 17:53
PROVIDERS: ADMIT Internal Medicine; ATTEND Internal Medicine Sleep Medicine